=== PATIENT | male | born 1995 | race African-American/Black ===

== ENCOUNTER 2020-09-18 02:22 | Emergency (ER) | payer MEDICAID ==
[~2020-09-18] VITALS: Ht 172.7 cm; Wt 81.6 kg
--- NOTE | 2020-09-18 02:47 | NUR ---
ED Nurse Note: Patient walked into the ED with c/o STD. PT stated having hx of syphilis and was treated 4 mos ago with antibiotics. Pt stated he has sore/rash on penile area. Pt denies fever/chills, N/V/D. Pt aaox4 and ambulatory. VSS as documented
--- NOTE | 2020-09-18 02:48 | NUR ---
ED Nurse Note: ERMd at bedside
[2020-09-18 02:49] VITALS: BP 136/85
--- NOTE | 2020-09-18 02:50 | Emergency Room Report ---
History of Present Illness General Chief Complaint: Male Urogenital Problems Source: Patient Present Illness HPI This is a 25-year-old male with history of syphilis that was treated 4 months ago. He presents with chief complaint of rash on his penis. Onset for 1 day. He is sexually active with one partner. He said this is similar to previous infection. Is painless. He noticed it yesterday. No fever chills. No discharge. He has a new sexual partner since last time. Allergies: Coded Allergies: No Known Allergies (Unverified , 09/18/20) COVID-19 Screening Contact w/high risk pt: No Experienced COVID-19 symptoms?: No COVID-19 Testing performed PHYSICIAN RELATIONS SPECIALIST: No COVID-19 Screening: Negative COVID-19 COVID-19 Testing Source: [facility] Patient History Past Medical History: see triage record, old chart reviewed Past Surgical History: none Pertinent Family History: none Social History: Denies: smoking Immunizations: other Reviewed Nursing Documentation: PMH: Agreed; PSxH: Agreed Nursing Documentation-PMH Past Medical History: No Stated History Review of Systems Eye: Denies: eye pain, blurred vision ENT: Denies: ear pain, nose congestion, throat swelling Respiratory: Denies: cough, shortness of breath Cardiovascular: Denies: chest pain, palpitations Gastrointestinal: Denies: abdominal pain, diarrhea, nausea, vomiting Musculoskeletal: Denies: back pain, joint pain Skin: Denies: rash Neurological: Denies: headache, numbness Endocrine: Denies: increased thirst, increased urine Hematologic/Lymphatic: Denies: easy bruising All Other Systems: negative except mentioned in HPI Physical Exam Vital Signs Date Time Temp Pulse Resp B/P (MAP) Pulse Ox O2 Delivery O2 Flow Rate FiO2 09/18/20 02:41 98.4 85 20 136/85 (102) 98 Room Air Vitals normal Sp02 EP Interpretation: reviewed, normal General Appearance: well appearing, no apparent distress, alert Head: normocephalic, atraumatic Eyes: bilateral eye PERRL, bilateral eye EOMI ENT: hearing grossly normal, normal pharynx Neck: full range of motion, supple, no meningismus Respiratory: chest non-tender, lungs clear, normal breath sounds Cardiovascular #1: regular rate, rhythm, no murmur Gastrointestinal: normal bowel sounds, non tender, no mass, no organomegaly, no bruit, non-distended Genitourinary: other - Patient is uncircumcised. There is a chancre at the base of the gland and foreskin. No testicular pain. No discharge. Musculoskeletal: back normal, normal range of motion, gait/station normal Psychiatric: mood/affect normal Medical Decision Making Diagnostic Impression: Primary Impression: Syphilis ER Course This patient presents with symptom concerning for syphilis. No discharge. Penicillin given here. Recommend treating partner also. Recommend outpatient testing for HIV, hepatitis, and other STDs. Last Vital Signs Date Time Temp Pulse Resp B/P (MAP) Pulse Ox O2 Delivery O2 Flow Rate FiO2 09/18/20 02:41 98.4 85 20 136/85 (102) 98 Room Air Status: improved Disposition: HOME, SELF-CARE Condition: Stable Additional Instructions: Have your partner treated also. Recommend outpatient testing for HIV, hepatitis and other STDs. This can be done through the health department. Return if symptoms worsen. Rodrigo Andrade MD Sep 18, 2020 02:49
[2020-09-18] MEDS: Bicillin LA 1.2MMU/2ML SYR IM ONE (02:53)
--- NOTE | 2020-09-18 03:00 | NUR ---
ER DISCHARGE NOTE: Patient is cleared to be discharged per ERMD, pt is aox4, on room air, with stable vital signs. pt was given dc and prescription instructions, pt was able to verbalize understanding, pt id band removed. pt is able to ambulate with steady gait. pt took all belongings.
[2020-09-18 03:10] VITALS: BP 136/85
== END 2020-09-18 03:00 | disposition home or self-care (01) ==
LOC: EMR 02:48
DX: A53.9 Syphilis, unspecified (principal)
CPT/HCPCS: J0561; Z7502; 99282